=== PATIENT | male | born 1980 | race Caucasian/White ===

== ENCOUNTER 2024-01-21 08:48 | Emergency (ER) | payer BC, MEDICAID, SELFPAY ==
[2024-01-21 09:00] VITALS: BP 163/81; PULSE 93; RESP 20; TEMP 36.6; O2SAT 100
--- NOTE | 2024-01-21 09:27 | ED.LOWEXIN ---
HPI - Extremity Injury (Lower) General Chief Complaint: Extremity Problem,Nontraumatic Stated Complaint: right wrist,hand,arm ,left hand sores. L hip pain Time Seen by Provider: 01/21/24 09:27 Source: patient, RN notes reviewed and old records reviewed Mode of arrival: ambulatory Limitations: no limitations History of Present Illness HPI Narrative: Patient arrives with multiple medical complaints, mostly chronic, but acute complaint today is multiple small pustules scattered over the body. Some with drainage. He reports that he is unsure when symptoms all began, he believes a couple of weeks ago. States that any time he gets a scrape he ends up with an infected looking sore. He has been using peroxide on the affected areas. Patient states that he fell out of a tree about 6 weeks ago, said he was seen at [facility] emergency department at the time of his injury. Reports that he has ?not been right? since. States that he continues with musculoskeletal pain and elevated blood pressure. He admits that he has not followed up with a primary care provider. He denies any fever, chills, sweats. He denies any more recent injury or trauma Related Data Allergies Allergy/AdvReac Type Severity Reaction Status Date / Time aspirin AdvReac Mild STOMACH Verified 01/21/24 09:40 UPSET Review of Systems Review of Systems: All systems reviewed & are unremarkable except as noted in HPI and below Constitutional: Constitutional: Reports as per HPI and Reports no additional constitutional complaints ENT: Reports system reviewed and no additional complaints, except as documented Cardiovascular: Cardiovascular: Reports no additional cardiovascular complaints Respiratory: Respiratory: Reports no additional respiratory complaints Gastrointestinal: Gastrointestinal: Reports no additional gastrointestinal complaints Musculoskeletal: Musculoskeletal: Reports no additional musculoskeletal complaints and Reports as per HPI Integumentary/Breasts: Skin/Breast: Reports system reviewed and no additional complaints, except as docu and Reports as per HPI PMFSH Comments At the time of my signature, I reviewed and agree with the nursing past medical, surgical, social, and family history. There is no relevant family history pertinent to the patient complaint. Exam Const: General: cooperative, no acute distress, alert and awake Orientation/consciousness: oriented to person, oriented to place and oriented to time HENMT: Head: normal to inspection Mouth: Yes moist mucous membranes abnormal Resp: Effort & Inspection: normal respiratory effort and able to speak in complete sentences Auscultation: clear to auscultation bilaterally, no crackles, no rales, no rhonchi and no wheezes Cardio: Palpation: normal PMI Rate: regular rate Rhythm: regular rhythm Heart sounds: S1 normal heart sound present and S2 normal heart sound present Skin: Other: Multiple pustules scattered both upper extremities in various stages of healing. Some without active drainage, some without. All have been de roofed. Non amenable to incision and drainage. Culture retrieved Neuro: General: oriented to person, oriented to place and oriented to time Cranial nerves: Yes CN's II-XII intact bilaterally Psych: Appearance: grossly normal Thought process: Normal thought process present Insight: Good insight present (Psych) Judgement: Good judgement present (Psych) Course Course Level of Care: Express Care Visit Vital Signs Vital signs: Vital Signs Temperature 97.9 F 01/21/24 09:00 Pulse Rate 93 01/21/24 09:00 Respiratory Rate 20 01/21/24 09:00 Blood Pressure 163/81 H 01/21/24 09:00 Pulse Oximetry 100 01/21/24 09:00 Oxygen Delivery Room Air 01/21/24 09:00 Temperature 97.9 F 01/21/24 09:00 Pulse Rate 93 01/21/24 09:00 Respiratory Rate 20 01/21/24 09:00 Blood Pressure 163/81 H 01/21/24 09:00 Pulse Oximetry 100 01/21/24 09:00 Oxygen Delivery Room Air 01/21/24 09:00 Reviewed MDM - Extremity Injury (Lower) MDM Narrative Medical decision making narrative: Patient advised of the importance of following with primary care provider to address thing such as chronic musculoskeletal pain and elevated blood pressure. He was started on doxycycline for his skin infection, mupirocin topically. He is advised to go through list of primary care providers that was provided to him and find want to be seen as soon as possible. Emergency department for new or worse symptoms. Discharge instructions reviewed with patient, as well as provided in writing per nursing staff. The instructions also include specific and strict return/GO TO THE ER as well as f/u information. All questions have been answered, and the patient deny any further questions with discharge and discharge plan. Some parts of this dictation were generated by voice recognition software and may contain typographical and/or grammatical inaccuracies. Differential Diagnosis Differential diagnosis: Likely other (Abscess, cellulitis, dermatitis) Medical Records Attestation: I reviewed the patient's medical records. Discharge Plan Discharge Clinical Impression: Elevated blood pressure reading Cellulitis Qualifiers: Site of cellulitis: unspecified site Qualified Code(s): L03.90 - Cellulitis, unspecified Patient Disposition: Home, Self-Care Condition: Stable Instructions: Antibiotic Form, Cellulitis (ED), DASH Eating Plan (ED) Additional Instructions: Take medications as prescribed. Follow with primary care provider, a list of primary care doctors has been provided to you. Emergency department immediately for any new or worse symptoms Patient Language: Macedonian Prescriptions: New doxycycline hyclate 100 mg capsule 100 mg PO BID Qty: 20 0RF mupirocin 2 % ointment 1 applic topical TID 14 Days Qty: 22 0RF Follow-up/Referrals: PHYSICIAN,GRID CASTING MACHINE OPERATOR HELPER [Primary Care Provider] - Time of Disposition: 09:50
== END 2024-01-21 09:57 | disposition home or self-care (01) ==
PROVIDERS: Emergency Provider Nurse Practitioner Family
DX: L03.90 Cellulitis, unspecified (principal); R03.0 Elevated blood-pressure reading, without diagnosis of hypertension
CPT/HCPCS: 87070; 87075; 87205; 99203; G0463

== ENCOUNTER 2024-11-29 20:11 | Emergency (ER) | payer BC, SELFPAY ==
--- NOTE | ~2024-11-29 | XR_ITS ---
XR foot LT min 3V 11/29/2024 20:26 INDICATION: Blunt trauma. Left foot pain. PROCEDURE: 4 views left foot COMPARISON: No prior studies for comparison. FINDINGS: Fracture, dislocation or subluxation is not identified. The soft tissues appear within normal limits. No foreign bodies are identified. IMPRESSION: 1: NO ACUTE BONE OR JOINT ABNORMALITY IDENTIFIED. Reviewed, dictated and finalized at location O.
[2024-11-29 20:15] VITALS: BP 167/111; PULSE 94; RESP 18; TEMP 36.8; O2SAT 100
[2024-11-29] MEDS: HYDROcodone/acetaminophen (*CRX) 7.5-325 MG TABLET 1 TAB PO (22:11)
[2024-11-29 22:27] VITALS: BP 136/78; PULSE 88; RESP 18; TEMP 36.7; O2SAT 99
--- NOTE | 2024-11-30 09:21 | ED_ITS ---
HPI - Extremity Injury (Lower) General Chief Complaint: Extremity Injury, Lower Stated Complaint: L foot injury Time Seen by Provider: 11/29/24 20:54 History of Present Illness HPI Narrative: 44-year-old otherwise healthy male presenting after dropping a concrete block on his left foot. Able ambulate. This occurred several hours prior to arrival to the ED. Did not take anything for pain prior to arrival. No some pain and swelling and some pain with ambulation. No neuropathy or weakness. No other injuries. Related Data Allergies Allergy/AdvReac Type Severity Reaction Status Date / Time aspirin AdvReac Mild STOMACH Verified 11/29/24 20:18 UPSET Review of Systems Review of Systems: As reviewed above in HPI Exam Narrative: GENERAL: [Well-appearing, well-nourished, and in no acute distress.] HEAD: [Normocephalic, atraumatic.] EYES: [PERRLA and EOMI.] ENT: Nares clear, no rhinorrhea or epistaxis. Mucous membranes moist. NECK: Supple. CHEST: [Clear to auscultation. No respiratory distress.] HEART: [Regular rate and rhythm]. No murmur heard. [Normal peripheral pulses.] ABDOMEN: [Soft, nondistended], [nontender], [No rigidity or guarding] EXTREMITIES: Normal range of motion. Mildly tender dorsum of the left foot. No step-offs deformities. Able to range all all digits. Palpable pulses and warm extremities good capillary refill. SKIN: Warm, dry, no rash. NEURO: [No focal deficits]. Alert and oriented [x3.] PSYCH: [Normal mood and affect.] Course Vital Signs Vital signs: Vital Signs Temperature 36.8 C 11/29/24 20:15 Pulse Rate 94 11/29/24 20:15 Respiratory Rate 18 11/29/24 20:15 Blood Pressure 167/111 H 11/29/24 20:15 Pulse Oximetry 100 11/29/24 20:15 Oxygen Delivery Room Air 11/29/24 20:15 Temperature 36.7 C 11/29/24 22:27 Pulse Rate 88 11/29/24 22:27 Respiratory Rate 18 11/29/24 22:27 Blood Pressure 136/78 11/29/24 22:27 Pulse Oximetry 99 11/29/24 22:27 Oxygen Delivery Room Air 11/29/24 20:15 MDM - Extremity Injury (Lower) MDM Narrative Medical decision making narrative: 44-year-old otherwise healthy male presenting after dropping a concrete block on his left foot. Able ambulate. This occurred several hours prior to arrival to the ED. Did not take anything for pain prior to arrival. No some pain and swelling and some pain with ambulation. No neuropathy or weakness. No other injuries. Normal range of motion. Mildly tender dorsum of the left foot. No step-offs deformities. Able to range all all digits. Palpable pulses and warm extremities good capillary refill. Hemodynamically stable. X-rays obtained shows no acute injury. Patient given some pain medications and discharged home at this time. Hu wrap applied and crutches given for ambulation assistance as needed. Medical Records Attestation: I reviewed the patient's medical records. Imaging Data Attestation: I personally reviewed and interpreted this imaging study as follows: My impression: Impressions Foot X-Ray 11/30/24 07:30 IMPRESSION: 1: NO ACUTE BONE OR JOINT ABNORMALITY IDENTIFIED. Discharge Plan Discharge Clinical Impression: Acute foot pain Patient Disposition: Home Condition: Stable Instructions: Antibiotic Form, Foot Sprain (ED) Additional Instructions: X-rays do not show any fractures dislocations. We have given you some pain medication here. In addition take Tylenol and ibuprofen every 6-8 hours for pain and swelling control. Apply the Hu wrap for comfort. Apply ice to the area up to 20 minutes at a time and return with any emergent concerns. Ambulate as tolerated and we can also send you home with some crutches. Patient Language: Montenegrin Prescriptions: No Action doxycycline hyclate 100 mg capsule 100 mg PO BID Qty: 20 0RF mupirocin 2 % ointment 1 applic topical TID 14 Days Qty: 22 0RF cephalexin 500 mg capsule 500 mg PO BID 7 Days Qty: 14 0RF Follow-up/Referrals: PHYSICIAN,TUBULAR PRODUCTS FABRICATOR [Primary Care Provider, Internal Medicine] Time of Disposition: 22:12
== END 2024-11-29 22:28 | disposition home or self-care (01) ==
PROVIDERS: Emergency Provider Student in an Organized Health Care Education/Training Program
DX: S99.922A Unspecified injury of left foot, initial encounter (principal); W20.8XXA Other cause of strike by thrown, projected or falling object, initial encounter
CPT/HCPCS: 73630; 99283; A9270